=== PATIENT | male | born 1965 | race African-American/Black ===

== ENCOUNTER → 2017-02-28 | Outpatient (REF) | payer OTHER ==
[2017-02-28 17:49] LABS: ANION GAP 6 MEQ/L (8-16); BLOOD UREA NITROGEN 14 MG/DL (7-18); CALCIUM LEVEL 8.6 MG/DL (8.5-10.1); CARBON DIOXIDE LEVEL 29 MEQ/L (21-32); CHLORIDE LEVEL 106 MEQ/L (98-107); CREATININE FOR GFR 1.01 MG/DL (0.70-1.30); GLOMERULAR FILTRATION RATE > 60.0 (>56); GLUCOSE, FASTING 109 MG/DL (70-105); POTASSIUM SERUM 4.5 MEQ/L (3.5-5.1); SODIUM LEVEL 141 MEQ/L (136-145)
== END ==
LOC: M SFHCPLAZ 12:25 → EDSEX 12:25
PROVIDERS: ATTEND Family Medicine
DX: R35.8 Other polyuria (principal); Z11.59 Encounter for screening for other viral diseases; R35.1 Nocturia
CPT/HCPCS: 80048; 83036; 87521; 87899; G0103

== ENCOUNTER → 2017-04-12 | Outpatient (CLI) | payer OTHER ==
[~2017-04-12] VITALS: Ht 167.6 cm; Wt 113.4 kg
[~2017-04-12] MED LIST: ATOR1TAB18 PO; B-12100010 PO; FLOM5CAP PO; IBUP-1114 PO; LIDOCAINE 2% INJ 100 MG/5 ML SDV (FOR ANES.) As Ordered ONE; LISI10TA4 PO; METO25TA74 PO; NITR0.4D6 SL; NITR0.4S14 SL; NS 1,000 ML IV ONE; OMEP20CA3 PO; ONETAB4 PO; PROA1AER INH; PROPOFOL 200 MG/20 ML VIAL As Ordered ONE; SILD25TA PO; SYMB80INH PO; TYLE500T78 PO; VITA100037 PO
--- NOTE | 2017-04-12 14:48 | ROOR ---
Patient Name: Jad Cristina Procedure Date: 04/12/2017 2:29 PM Date of : 1965 Age: 52 Room: [facility] Gender: Male Note Status: Finalized Procedure: Colonoscopy Indications: Screening for colorectal malignant neoplasm Providers: Anastacio ROWLAND MD Referring MD: Js Varela MD Requesting Provider: Medicines: Monitored Anesthesia Care Complications: No immediate complications. Procedure: Pre-Anesthesia Assessment: - The heart rate, respiratory rate, oxygen saturations, blood pressure, adequacy of pulmonary ventilation, and response to care were monitored throughout the procedure. The Colonoscope was introduced through the anus and advanced to 5 cm into the ileum. The colonoscopy was somewhat difficult due to unsatisfactory bowel prep. Successful completion of the procedure was aided by lavage. The patient tolerated the procedure well. The quality of the bowel preparation was adequate. Findings: The perianal and digital rectal examinations were normal. Internal hemorrhoids were found during retroflexion. The hemorrhoids were moderate. The entire examined colon appeared normal on direct and retroflexion views. Impression: - Suboptimal but adequate colon prep after extensive lavage/suctioning - Internal hemorrhoids. - The entire examined colon is normal on direct and retroflexion views. - No specimens collected. Recommendation: - I suggest repeat colonoscopy in 3 years because the bowel preparation was suboptimal. Anastacio Rowland MD Anastacio ROWLAND MD 04/12/2017 2:47:58 PM This report has been signed electronically. Number of Addenda: 0 Note Initiated On: 04/12/2017 2:29 PM Estimated Blood Loss: Estimated blood loss: none.
[2017-04-12 15:05] VITALS: BP 157/100
== END ==
LOC: M OPP 12:35
PROVIDERS: ATTEND Internal Medicine Gastroenterology
DX: Z12.11 Encounter for screening for malignant neoplasm of colon (principal); K64.8 Other hemorrhoids; I10 Essential (primary) hypertension; R07.9 Chest pain, unspecified; G47.33 Obstructive sleep apnea (adult) (pediatric); N40.0 Benign prostatic hyperplasia without lower urinary tract symptoms; J45.901 Unspecified asthma with (acute) exacerbation; K21.9 Gastro-esophageal reflux disease without esophagitis; E78.5 Hyperlipidemia, unspecified; Z79.899 Other long term (current) drug therapy; Z91.018 Allergy to other foods